=== PATIENT | male | born 2000 | race Caucasian/White ===

== ENCOUNTER 2025-03-17 20:57 | Emergency (ER) | payer OTHER ==
[~2025-03-17] VITALS: Ht 182.9 cm; Wt 97.7 kg
[2025-03-17 21:16] VITALS: TEMP 98.1
[2025-03-17 23:32] LABS: PLATELET COUNT (AUTO) 279 K/uL (150-450); RED BLOOD CELL COUNT(AUTO) 4.58 MIL/uL (4.50-5.90); RED CELL DISTRIBUTION WIDTH 15.4 % (11.5-14.5); WHITE BLOOD COUNT (AUTO) 10.9 K/uL (4.5-11.0)
[2025-03-17 23:34] VITALS: BP 113/77; PULSE 68; RESP 18; O2SAT 95
[2025-03-17 23:47] LABS: CALCIUM, TOTAL 8.7 mg/dL (8.8-10.5); CREATININE 0.88 mg/dL (0.60-1.30); GLOMERULAR FILTR. RATE CALC > 60 mL/min (>60); GLUCOSE,RANDOM 88 mg/dL (70-110); SODIUM SERUM 142 mmol/L (136-145); UREA NITROGEN, BLOOD 16 mg/dL (7-18)
[2025-03-17 23:52] LABS: CREATINE KINASE, TOTAL ONLY 49 U/L (39-308)
[2025-03-17 23:57] LABS: TROPONIN I-HIGH SENSITIVITY Less Than 4 ng/L (<76)
== END 2025-03-18 01:49 | disposition home or self-care (01) ==
LOC: EMS 20:57
DX: R60.9 Edema, unspecified (principal); J45.909 Unspecified asthma, uncomplicated; I50.9 Heart failure, unspecified; F12.90 Cannabis use, unspecified, uncomplicated; R06.02 Shortness of breath; Z88.5 Allergy status to narcotic agent; Z91.048 Other nonmedicinal substance allergy status
CPT/HCPCS: 71045; 80048; 82550; 83880; 84484; 85025; 93005; 99285; 36415-L1; 36415-TC